=== PATIENT | female | born 1950 | race Caucasian/White ===

== ENCOUNTER 2022-08-06 06:36 | Day surgery (SDC) | payer MEDICARE ==
[2022-08-06] MEDS ORDERED: fentaNYL 100 MCG/2 ML SDV IV ONE (06:37)
[2022-08-06] MEDS ORDERED: Midazolam 1 MG/ML 2 ML SDV IV ONE (06:37)
[2022-08-06] MEDS ORDERED: Sodium Chloride 0.9% 10 ML Syringe FLUSH PRN (06:45)
[2022-08-06] MEDS ORDERED: Lactated Ringers 1,000 ML IV PRN (06:45)
[2022-08-06] MEDS ORDERED: acetaZOLAMIDE 500 MG Cap.ER PO ONE (09:00)
== END 2022-08-06 09:15 | disposition home or self-care (01) ==
LOC: FB.SDS 06:36
PROVIDERS: ATTEND Ophthalmology
DX: H26.9 Unspecified cataract (principal); E78.2 Mixed hyperlipidemia; G62.9 Polyneuropathy, unspecified; E53.8 Deficiency of other specified B group vitamins; G89.29 Other chronic pain; M54.50 Low back pain, unspecified; R03.0 Elevated blood-pressure reading, without diagnosis of hypertension; Z79.899 Other long term (current) drug therapy; Z98.890 Other specified postprocedural states
CPT/HCPCS: 00142; A9270-GY; J2250; J3010; J3490; V2632

== ENCOUNTER 2022-08-20 07:48 | Day surgery (SDC) | payer MEDICARE ==
[2022-08-20] MEDS ORDERED: Midazolam 1 MG/ML 2 ML SDV IV ONE (07:49)
[2022-08-20] MEDS ORDERED: fentaNYL 100 MCG/2 ML SDV IV ONE (07:49)
[2022-08-20] MEDS ORDERED: Lactated Ringers 1,000 ML IV PRN (08:00)
[2022-08-20] MEDS ORDERED: Sodium Chloride 0.9% 10 ML Syringe FLUSH PRN (08:00)
[2022-08-20] MEDS ORDERED: acetaZOLAMIDE 500 MG Cap.ER PO ONE (10:00)
== END 2022-08-20 10:15 | disposition home or self-care (01) ==
LOC: FB.SDS 07:48
PROVIDERS: ATTEND Ophthalmology
DX: H26.9 Unspecified cataract (principal); R03.0 Elevated blood-pressure reading, without diagnosis of hypertension; E78.2 Mixed hyperlipidemia; G62.9 Polyneuropathy, unspecified; E53.8 Deficiency of other specified B group vitamins; M54.50 Low back pain, unspecified; G89.29 Other chronic pain; Z79.899 Other long term (current) drug therapy; Z98.890 Other specified postprocedural states
CPT/HCPCS: 00142; A9270-GY; J2250; J3010; J3490; V2632

== ENCOUNTER 2024-02-01 22:50 | Emergency (ER) | payer MEDICARE | END 2024-02-02 01:57 | LOC: FB.ED 22:50 | DX: S82.891A Other fracture of right lower leg, initial encounter for closed fracture (principal); I10 Essential (primary) hypertension; E66.9 Obesity, unspecified; Z90.710 Acquired absence of both cervix and uterus; Z79.899 Other long term (current) drug therapy; Z91.018 Allergy to other foods; Z68.30 Body mass index [BMI] 30.0-30.9, adult; W01.0XXA Fall on same level from slipping, tripping and stumbling without subsequent striking against object, initial encounter | CPT/HCPCS: 73610-RT; 73660-T6; 99284 ==